=== PATIENT | male | born 1970 | race Caucasian/White ===

== ENCOUNTER → 2017-05-15 | Outpatient (CLI) | payer BC ==
[2017-05-15 16:44] LABS: SYNOVIAL FLUID WBC 0 /mm3 (200-600)
[2017-05-15 16:48] LABS: SYNOVIAL FLUID COLOR YELLOW
[2017-05-15 16:49] LABS: SYNOVIAL FLUID APPEARANCE CLEAR
== END ==
LOC: ZCOL.LAB 16:20
PROVIDERS: Orthopaedic Surgery
DX: M25.462 Effusion, left knee (principal)

== ENCOUNTER → 2020-07-16 | Outpatient (CLI) | payer BC | LOC: COL.RAD 13:04 | DX: M16.12 Unilateral primary osteoarthritis, left hip (principal); M24.152 Other articular cartilage disorders, left hip | CPT/HCPCS: A9585; Q9967 ==